=== PATIENT | female | born 1945 | race Caucasian/White ===

== ENCOUNTER → 2024-04-03 11:06 | Outpatient (REF) | payer OTHER, SELFPAY ==
[2024-04-03 12:16] LABS: ALT (SGPT) 24 U/L (0-35); AST (SGOT) 25 U/L (14-36); Albumin 4.9 g/dl (3.5-5.0); Alkaline Phosphatase 65 U/L (38-126); Blood Urea Nitrogen 28 mg/dl (7-17); Calcium 9.6 mg/dl (8.4-10.2); Carbon Dioxide 31 mmol/L (22-30); Chloride 99 mmol/L (98-107); Creatine Phosphokinase 124 U/L (30-135); Glucose 109 mg/dl (70-99); HDL Cholesterol 97 mg/dl; LDL Cholesterol, Calculated 79 mg/dl; Sodium 138 mmol/L (135-145); Total Bilirubin 0.5 mg/dl (0.2-1.3); Total Cholesterol 193 mg/dl (50-199); Total Protein 7.7 g/dl (6.3-8.2); Triglyceride 89 mg/dl (10-149); Very Low Density Lipoprotein 17 mg/dl (0-30); eGFR 42.35
== END ==
LOC: REG 11:06
PROVIDERS: ATTENDING PHYSICIAN Family Medicine
DX: E78.00 Pure hypercholesterolemia, unspecified (principal); T46.6X5A Adverse effect of antihyperlipidemic and antiarteriosclerotic drugs, initial encounter
CPT/HCPCS: 36415; 80053; 80061; 82550

== ENCOUNTER → 2025-01-26 08:29 | Outpatient (REF) | payer OTHER, SELFPAY ==
[2025-01-26 09:31] LABS: Hematocrit 42.4 % (37.0-47.0); Hemoglobin 13.6 g/dL (12.0-16.0); Mean Corp Hgb Conc. 32.1 g/dL (33.0-37.0); Mean Corpuscular Volume 96.6 fL (81.0-99.0); Nucleated Red Blood Cells % 0 %; Platelet Count 215 10^3/uL (130-400); Red Cell Dist. Width 13.2 % (11.5-14.5)
[2025-01-26 10:03] LABS: ALT (SGPT) 25 U/L (0-35); AST (SGOT) 24 U/L (14-36); Albumin 4.7 g/dl (3.5-5.0); Alkaline Phosphatase 58 U/L (38-126); Blood Urea Nitrogen 24 mg/dl (7-17); Calcium 9.8 mg/dl (8.4-10.2); Carbon Dioxide 31 mmol/L (22-30); Chloride 100 mmol/L (98-107); Glucose 107 mg/dl (70-99); HDL Cholesterol 96 mg/dl; LDL Cholesterol, Calculated 90 mg/dl; Potassium 5.3 mmol/L (3.5-5.1); Sodium 135 mmol/L (135-145); Total Protein 7.8 g/dl (6.3-8.2); Very Low Density Lipoprotein 14 mg/dl (0-30); eGFR 46.33
[2025-01-26 10:45] LABS: TSH 2.15 uIU/ml (0.47-4.68)
== END ==
LOC: REG 08:29
PROVIDERS: ATTENDING PHYSICIAN Family Medicine
DX: Z01.818 Encounter for other preprocedural examination (principal); N18.32 Chronic kidney disease, stage 3b; E78.00 Pure hypercholesterolemia, unspecified; E03.9 Hypothyroidism, unspecified
CPT/HCPCS: 36415; 80053; 80061; 82550; 84439; 84443; 85025

== ENCOUNTER → 2025-02-21 08:31 | Outpatient (REF) | payer OTHER, SELFPAY | LOC: MRI 3T 08:31 | DX: H53.462 Homonymous bilateral field defects, left side (principal); G45.9 Transient cerebral ischemic attack, unspecified | CPT/HCPCS: 70551 ==

== ENCOUNTER → 2025-03-02 12:45 | Outpatient (REF) | payer OTHER, SELFPAY | LOC: RAD 12:45 | PROVIDERS: FAMILY PHYSICIAN Family Medicine | DX: H53.462 Homonymous bilateral field defects, left side (principal); G45.9 Transient cerebral ischemic attack, unspecified | CPT/HCPCS: 93880 ==